=== PATIENT | male | born 1980 | race Caucasian/White ===

== ENCOUNTER 2017-05-17 22:48 | Emergency (ER) | payer BC, OTHER ==
[2017-05-17] MEDS ORDERED: cefTRIAXone 1,000 MG in Lidocaine 1% 4 ML IM ONE (23:14)
--- NOTE | 2017-05-17 23:16 | EDM.PDOC ---
ED HPI GENERAL MEDICAL PROBLEM - General Chief Complaint: ENT Problem Stated Complaint: PT HAS SORE THROAT Time Seen by Provider: 05/17/17 23:14 Source of Information: Reports: Patient - History of Present Illness INITIAL COMMENTS - FREE TEXT/NARRATIVE: HISTORY AND PHYSICAL: History of present illness: [ Patient presents with sore throat increasing in severity over the last 3-4 days difficulty with solid food no difficulty with liquid no fever nausea vomiting chills sweats Patient has history of significant tonsillitis he has had 3 episodes within the last 6 months, his doctor in [place] had recommended a tonsillectomy as his airway was nearly compromised previously however patient has a fear of surgery and declined at that time that he has been dealing with tonsillitis/ pharyngitis every 4-6 weeks, not all episodes are documented as he has taken some of his mother's antibiotics. No fever nausea vomiting chills sweats no hot potato voice to [place] or drooling ] Review of systems: As per history of present illness and below otherwise all systems reviewed and negative. Past medical history: As per history of present illness and as reviewed below otherwise noncontributory. Surgical history: As per history of present illness and as reviewed below otherwise noncontributory. Social history: No reported history of drug or alcohol abuse. Family history: As per history of present illness and as reviewed below otherwise noncontributory. Physical exam: HEENT: Atraumatic, normocephalic, pupils reactive, negative for conjunctival pallor or scleral icterus, mucous membranes moist, throat clear, neck supple, nontender, trachea midline. Moderate erythema tonsils 2+ enlarged submandibular lymph nodes Lungs: Clear to auscultation, breath sounds equal bilaterally, chest nontender. Heart: S1S2, regular, negative for clicks, rubs, or JVD. Abdomen: Soft, nondistended, nontender. Negative for masses or hepatosplenomegaly. Negative for costovertebral tenderness. Pelvis: Stable nontender. Genitourinary: Deferred. Rectal: Deferred. Extremities: Atraumatic, negative for cords or calf pain. Neurovascular unremarkable. Neuro: Awake, alert, oriented. Cranial nerves II through XII unremarkable. Cerebellum unremarkable. Motor and sensory unremarkable throughout. Exam nonfocal. Diagnostics: []Rapid strep Therapeutics: []1 g Rocephin Augmentin 875 twice a day #20 no refill Impression: []Pharyngitis/tonsillitis Definitive disposition and diagnosis as appropriate pending reevaluation and review of above. throat Pain Score (Numeric/FACES): 9 - Related Data Allergies Allergy/AdvReac Type Severity Reaction Status Date / Time No Known Allergies Allergy Verified 05/17/17 23:01 Home Meds: Home Meds Phentermine 1 cap PO DAILY 08/19/15 [History] Past Medical History - Past Health History Medical/Surgical History: Denies Medical/Surgical History HEENT History: Reports: None, Other (See Below) Other HEENT History: Astigmatism Cardiovascular History: Reports: None Respiratory History: Reports: Sleep Apnea Other Respiratory History: on CPAP Gastrointestinal History: Reports: None Genitourinary History: Reports: None Musculoskeletal History: Reports: None Other Musculoskeletal History: Back pain, right knee has a torn lateral miniscus -suppose to have surgery, right ankle pain with walking Neurological History: Reports: Migraines Psychiatric History: Reports: Anxiety, Bipolar, Depression, Panic Attack Endocrine/Metabolic History: Reports: None Hematologic History: Reports: None Immunologic History: Reports: None Oncologic (Cancer) History: Reports: None Dermatologic History: Reports: Eczema, Other (See Below) Other Dermatologic History: dry skin especially around the eyes - Infectious Disease History Infectious Disease History: Reports: None Other Infectious Disease History: childhood - Past Surgical History HEENT Surgical History: Reports: None Respiratory Surgical History: Reports: None Musculoskeletal Surgical History: Reports: None Dermatological Surgical History: Reports: None Social & Family History - Family History Family Medical History: Noncontributory Cardiac: Reports: Heart Failure, Hypertension Respiratory: Reports: Asthma, COPD, Other (See Below) Other Respiratory Family Hisory: Emphysema Psychiatric: Reports: Anxiety, Depression Endocrine/Metabolic: Reports: Diabetes, type II Oncologic: Reports: Cervix, Thyroid - Tobacco Use Smoking Status *Q: Never Smoker Second Hand Smoke Exposure: Yes - Caffeine Use Caffeine Use: Reports: Tea - Alcohol Use Days Per Week of Alcohol Use: 7 Number of Drinks Per Day: 1 Total Drinks Per Week: 7 - Recreational Drug Use Recreational Drug Use: No ED ROS GENERAL - Review of Systems Review Of Systems: ROS reveals no pertinent complaints other than HPI. ED EXAM, GENERAL - Physical Exam Exam: See Below Course - Vital Signs Last Recorded V/S: Last Vital Signs Temp 36.1 C 05/17/17 23:02 Pulse 93 05/17/17 23:02 Resp 18 05/17/17 23:02 BP 137/91 H 05/17/17 23:02 Pulse Ox 97 05/17/17 23:02 - Orders/Labs/Meds Orders: Active Orders 24 hr Category Date Time Status STREP SCRN A RAPID W CULT CONF [RM] Stat Lab 05/17/17 23:16 Uncollected Meds: Medications Discontinued Medications Generic Name Dose Route Start Last Admin Trade Name Mikki PRN Reason Stop Dose Admin Ceftriaxone Sodium 1,000 mg/ 4 mls @ 4 mls/sec 05/17/17 23:14 Lidocaine HCl IM 05/17/17 23:15 ONETIME ONE Departure - Departure Time of Disposition: 23:17 Disposition: Home, Self-Care 01 Condition: Good Clinical Impression: Pharyngitis, Tonsillitis - Discharge Information Referrals: PCP,None [Primary Care Provider] - Forms: ED Department Discharge Additional Instructions: Given your history I will have a follow-up with ENT, you can call the number below for appropriate follow-up Medications as prescribed Return if symptoms persist or worsen despite treatment [facility]NT [address] [place] [address] The following information is given to patients seen in the emergency department who are being discharged to home. This information is to outline your options for follow-up care. We provide all patients seen in our emergency department with a follow-up referral. The need for follow-up, as well as the timing and circumstances, are variable depending upon the specifics of your emergency department visit. If you don't have a primary care physician on staff, we will provide you with a referral. We always advise you to contact your personal physician following an emergency department visit to inform them of the circumstance of the visit and for follow-up with them and/or the need for any referrals to a consulting specialist. The emergency department will also refer you to a specialist when appropriate. This referral assures that you have the opportunity for follow-up care with a specialist. All of these measure are taken in an effort to provide you with optimal care, which includes your follow-up. Under all circumstances we always encourage you to contact your private physician who remains a resource for coordinating your care. When calling for follow-up care, please make the office aware that this follow-up is from your recent emergency room visit. If for any reason you are refused follow-up, please contact the [facility] emergency department at and asked to speak to the emergency department charge nurse. - My Orders Last 24 Hours: My Active Orders 05/17/17 23:16 STREP SCRN A RAPID W CULT CONF [RM] Stat - Assessment/Plan Last 24 Hours: My Active Orders 05/17/17 23:16 STREP SCRN A RAPID W CULT CONF [RM] Stat
[2017-05-17 23:55] VITALS: BP 176/92
== END 2017-05-17 23:52 | disposition home or self-care (01) ==
LOC: MW.ED 22:48
DX: J03.90 Acute tonsillitis, unspecified (principal); G47.30 Sleep apnea, unspecified; F31.9 Bipolar disorder, unspecified; F41.0 Panic disorder [episodic paroxysmal anxiety]; Z79.899 Other long term (current) drug therapy
CPT/HCPCS: 87081; 87880; 96372; 99283; J0696; 99282

== ENCOUNTER 2017-05-31 16:21 | Emergency (ER) | payer SELFPAY ==
[2017-05-31] MEDS ORDERED: Sodium Chloride 0.9% 1,000 ML IV ONE (16:58)
--- NOTE | 2017-05-31 17:02 | EDM.PDOC ---
ED HPI GENERAL MEDICAL PROBLEM - General Chief Complaint: General Stated Complaint: PT HURT JAW Time Seen by Provider: 05/31/17 16:36 Source of Information: Reports: Patient History Limitations: Reports: No Limitations - History of Present Illness INITIAL COMMENTS - FREE TEXT/NARRATIVE: HISTORY AND PHYSICAL: History of present illness: Patient is a 37-year-old male who presents to the emergency room today with complaints of left jaw pain that started this morning. He states he was seen about a week ago and told he had tonsillitis and instructed to follow-up with ear nose and throat. He did see an ENT and was placed on antibiotics, Augmentin. Has since completed his course of antibiotics. Woke up this morning and felt intense pain to the left jaw, stating "it feels like a coat body hanger that is starting mid mandible and goes up into the left ear". Has increased pain with opening and closing his jaw/mouth. Denies any difficulty swallowing or breathing. Denies any chest pain, shortness of breath, headache, blurred vision, fever or chills. Review of systems: As per history of present illness and below otherwise all systems reviewed and negative. Past medical history: As per history of present illness and as reviewed below otherwise noncontributory. Surgical history: As per history of present illness and as reviewed below otherwise noncontributory. Social history: No reported history of drug or alcohol abuse. Family history: As per history of present illness and as reviewed below otherwise noncontributory. Physical exam: Gen.: Well-developed and well-nourished 37-year-old male. Able to speak in full sentences without shortness of breath. Alert and oriented. HEENT: Atraumatic, normocephalic, pupils reactive, negative for conjunctival pallor or scleral icterus, mucous membranes moist, throat clear, neck supple, nontender, trachea midline. No hot potato voice. No trismus. Tenderness with palpation along the left lower mandible going up into the left ear. NO clicking or creptitus with open/closing of mouth. Lungs: Clear to auscultation, breath sounds equal bilaterally, chest nontender. Heart: S1S2, regular rate and rhythm Abdomen: Soft, nondistended, nontender. Negative for masses or hepatosplenomegaly. Negative for costovertebral tenderness. Pelvis: Stable nontender. Genitourinary: Deferred. Rectal: Deferred. Skin: Intact, warm, and dry. No overt rashes or lesions. Extremities: Atraumatic, moves all per self. Neurovascular unremarkable. Neuro: Awake, alert, oriented. Cranial nerves II through XII unremarkable. Cerebellum unremarkable. Motor and sensory unremarkable throughout. Exam nonfocal. Patient reports that he does feel improved after receiving his IV fluids and [address] of the soft tissue neck shows no sign of abnormal fluid collection or abscess. There is a slightly enlarged reactive lymph node that may need further follow-up in approximately 6-8 weeks per the consulting radiologist. The labs that were done today are within normal limits. I did share these with the patient and the family at bedside. I do not see a need for any additional antibiotics at this time as he does not have a fever or elevated white count. Will provide the patient with some medication and I would like him to follow-up with her primary caregiver over the next couple days. Patient and family members are agreeable to plan of care and deny any further questions at this time. Diagnostics: CBC, CMP, CT soft tissue neck Therapeutics: IV fluid, morphine Impression: Jaw pain Plan: 1. I would like you to take an anti-inflammatory as this will help with swelling. 800 mg of ibuprofen twice daily by mouth. In between that you may take the prescribed pain medication. Be aware that the [place] may cause drowsiness so do not drive or take while she is functioning at work. 2. I would like you to follow-up with her primary caregiver in the next couple days for reevaluation. Turned to the ED as needed and as discussed. Definitive disposition and diagnosis as appropriate pending reevaluation and review of above. Left Oral/Mouth Pain Score (Numeric/FACES): 7 - Related Data Allergies Allergy/AdvReac Type Severity Reaction Status Date / Time No Known Allergies Allergy Verified 05/31/17 16:37 Home Meds: Home Meds Multivitamin [Multi-Vitamin Daily] 1 tab PO DAILY 05/31/17 [History] Past Medical History - Past Health History Medical/Surgical History: Denies Medical/Surgical History HEENT History: Reports: None, Other (See Below) Other HEENT History: Astigmatism L eye Cardiovascular History: Reports: None Respiratory History: Reports: Sleep Apnea Other Respiratory History: on CPAP Gastrointestinal History: Reports: None Genitourinary History: Reports: None Musculoskeletal History: Reports: None Other Musculoskeletal History: Back pain, right knee has a torn lateral miniscus -suppose to have surgery, right ankle pain with walking Neurological History: Reports: Migraines Psychiatric History: Reports: Anxiety, Bipolar, Depression, Panic Attack Endocrine/Metabolic History: Reports: None Hematologic History: Reports: None Immunologic History: Reports: None Oncologic (Cancer) History: Reports: None Dermatologic History: Reports: Eczema, Other (See Below) Other Dermatologic History: dry skin especially around the eyes - Infectious Disease History Infectious Disease History: Reports: Chicken Pox Other Infectious Disease History: childhood - Past Surgical History HEENT Surgical History: Reports: None Respiratory Surgical History: Reports: None Musculoskeletal Surgical History: Reports: None Dermatological Surgical History: Reports: None Social & Family History - Family History Family Medical History: Noncontributory Cardiac: Reports: Heart Failure, Hypertension Respiratory: Reports: Asthma, COPD, Other (See Below) Other Respiratory Family Hisory: Emphysema Psychiatric: Reports: Anxiety, Depression Endocrine/Metabolic: Reports: Diabetes, type II Oncologic: Reports: Cervix, Thyroid - Tobacco Use Smoking Status *Q: Never Smoker Second Hand Smoke Exposure: Yes - Caffeine Use Caffeine Use: Reports: Soda - Alcohol Use Days Per Week of Alcohol Use: 7 Number of Drinks Per Day: 1 Total Drinks Per Week: 7 - Recreational Drug Use Recreational Drug Use: No ED ROS GENERAL - Review of Systems Review Of Systems: ROS reveals no pertinent complaints other than HPI. ED EXAM, GENERAL - Physical Exam Exam: See Below (See dictation) Course - Vital Signs Last Recorded V/S: Last Vital Signs Temp 37.1 C 05/31/17 16:33 Pulse 96 05/31/17 16:33 Resp 12 05/31/17 16:33 BP 172/99 H 05/31/17 16:33 Pulse Ox 96 05/31/17 16:33 - Orders/Labs/Meds Orders: Active Orders 24 hr Category Date Time Status Soft Tissue Neck w Cont [CT] Stat Exams 05/31/17 16:58 Taken Labs: Laboratory Tests 05/31/17 05/31/17 Range/Units 17:08 17:08 WBC 8.95 (4.0-11.0) K/uL RBC 4.97 (4.50-5.90) M/uL Hgb 13.6 (13.0-17.0) g/dL Hct 40.9 (38.0-50.0) % MCV 82.3 (80.0-98.0) fL MCH 27.4 (27.0-32.0) pg MCHC 33.3 (31.0-37.0) g/dL RDW Std Deviation 39.5 (28.0-62.0) fl RDW Coeff of Ruben 13 (11.0-15.0) % Plt Count 257 (150-400) K/uL MPV 10.40 (7.40-12.00) fL Neut % (Auto) 68.2 (48.0-80.0) % Lymph % (Auto) 23.0 (16.0-40.0) % [place] % (Auto) 6.0 (0.0-15.0) % Eos % (Auto) 2.6 (0.0-7.0) % Baso % (Auto) 0.2 (0.0-1.5) % Neut # (Auto) 6.1 H (1.4-5.7) K/uL Lymph # (Auto) 2.1 (0.6-2.4) K/uL [place] # (Auto) 0.5 (0.0-0.8) K/uL Eos # (Auto) 0.2 (0.0-0.7) K/uL Baso # (Auto) 0.0 (0.0-0.1) K/uL Nucleated RBC % 0.0 /100WBC Nucleated RBCs # 0 K/uL Sodium 138 (136-146) mmol/L Potassium 3.8 (3.5-5.1) mmol/L Chloride 106 (98-110) mmol/L Carbon Dioxide 24 (21-31) mmol/L BUN 18 (6.0-23.0) mg/dL Creatinine 0.8 (0.6-1.5) mg/dL Est Cr Clr Drug Dosing 123.50 mL/min Estimated GFR (MDRD) > 60.0 ml/min Glucose 98 (60-110) mg/dL Calcium 9.3 (8.8-10.8) mg/dL Total Bilirubin 0.3 (0.1-1.5) mg/dL AST 18 (5-40) IU/L ALT 23 (8-54) IU/L Alkaline Phosphatase 74 (40-150) Total Protein 7.6 (6.0-8.0) g/dL Albumin 3.7 (3.5-5.0) g/dL Globulin 3.9 H (2.0-3.5) g/dL Albumin/Globulin Ratio 1.0 L (1.3-2.8) Meds: Medications Discontinued Medications Generic Name Dose Route Start Last Admin Trade Name Mikki PRN Reason Stop Dose Admin Sodium Chloride 1,000 mls @ 999 mls/hr 05/31/17 16:58 05/31/17 17:32 Normal Saline IV 05/31/17 17:58 999 mls/hr STAT ONE Administration Iopamidol 75 ml 05/31/17 18:03 05/31/17 18:06 Isovue-370 (76%) IVPUSH 05/31/17 18:04 75 ml ONETIME STA Administration Morphine Sulfate 2 mg 05/31/17 17:07 05/31/17 17:34 Morphine IVPUSH 05/31/17 17:08 2 mg ONETIME ONE Administration Departure - Departure Time of Disposition: 19:02 Disposition: Home, Self-Care 01 Clinical Impression: Jaw pain, non-TMJ - Discharge Information Referrals: PCP,None [Primary Care Provider] - Forms: ED Department Discharge Additional Instructions: My general discharge The following information is given to patients seen in the emergency department who are being discharged to home. This information is to outline your options for follow-up care. We provide all patients seen in our emergency department with a follow-up referral. The need for follow-up, as well as the timing and circumstances, are variable depending upon the specifics of your emergency department visit. If you don't have a primary care physician on staff, we will provide you with a referral. We always advise you to contact your personal physician following an emergency department visit to inform them of the circumstance of the visit and for follow-up with them and/or the need for any referrals to a consulting specialist. The emergency department will also refer you to a specialist when appropriate. This referral assures that you have the opportunity for follow-up care with a specialist. All of these measure are taken in an effort to provide you with optimal care, which includes your follow-up. Under all circumstances we always encourage you to contact your private physician who remains a resource for coordinating your care. When calling for follow-up care, please make the office aware that this follow-up is from your recent emergency room visit. If for any reason you are refused follow-up, please contact the [facility] Emergency Department at and asked to speak to the emergency department charge nurse. 1. I would like you to take an anti-inflammatory as this will help with swelling. 800 mg of ibuprofen twice daily by mouth. In between that you may take the prescribed pain medication. Be aware that the [place] may cause drowsiness so do not drive or take while she is functioning at work. 2. Please allow your jaw to rest and do not do activities that will cause increased pain 3. I would like you to follow-up with her primary caregiver in the next couple days for reevaluation. Turned to the ED as needed and as discussed. - My Orders Last 24 Hours: My Active Orders 05/31/17 16:58 Soft Tissue Neck w Cont [CT] Stat - Assessment/Plan Last 24 Hours: My Active Orders 05/31/17 16:58 Soft Tissue Neck w Cont [CT] Stat
[2017-05-31] MEDS ORDERED: Morphine 2 MG/ML Syringe IVPUSH ONE (17:07)
[2017-05-31 17:34] LABS: CHLORIDE,CL 106 mmol/L (98-110); SODIUM,NA 138 mmol/L (136-146)
[2017-05-31] MEDS ORDERED: Iopamidol 755 Mg/ML 100 ML Bottle IVPUSH STA (18:03)
[2017-05-31 19:17] VITALS: BP 111/52
--- NOTE | 2017-06-01 10:30 | CT ---
EXAM DATE: 05/31/17 PATIENT'S AGE: 37 Patient: NOELLE ANDRES Facility: [place], [place] Site . Site : 1980 Study: CT ST Neck [id number]/[id number] 6:11:40 PM Ordering Physician: Doctor Guzmán Final Report: HISTORY: Left-sided pain. Diagnosed with tonsillitis last week. Evaluate for peritonsillar abscess or TMJ abscess. TECHNIQUE: Soft tissue neck was scanned in the axial plane at 3 mm intervals after 80 cc Isovue-370. Sagittal and coronal reconstructions were performed. FINDINGS: Globes and orbital contents are symmetric. The frontal, ethmoid, sphenoid and right maxillary sinuses are well aerated. The left maxillary sinus has a 1.6 cm retention cyst or polyp. Mastoid air cells and middle ears are well-aerated. There is normal alignment and appearance of the TMJs. There is loss of lordosis within the cervical spine. There is degenerative changes of the disc at C5-6. The palatine tonsils are generous in size without abnormal fluid collection or abscess. The parapharyngeal fat planes are preserved. The parotid glands are symmetric in size and density. Submandibular glands are symmetric in size and density. There are small posterior cervical lymph nodes. Small submandibular lymph nodes are present. There are 1.0 x 1.0 cm and 1.2 x 1.2 cm left jugular lymph nodes. The vallecula and piriform sinuses are symmetric. The vocal cords are normal. The thyroid is homogeneous. No pathologic mediastinal lymphadenopathy seen. Upper lobes of the lung are well aerated. IMPRESSION: 1. [place] tonsils are generous in size without abnormal fluid collection or abscess. 2. There are generous left jugular lymph nodes most likely reactive. Consider exam 6-8 weeks to document resolution. 3. 1.6 cm mucous retention cyst or polyp left maxillary sinus. 4. No abscess identified. Dictated by Agata Braswell MD @ 05/31/2017 6:31:41 PM Dictated by: Agata Braswell MD @ 05/31/2017 18:31:47 (Electronic Signature) Report Signed by Proxy. NIHARIKA
== END 2017-05-31 19:15 | disposition home or self-care (01) ==
LOC: MW.ED 16:21
DX: R68.84 Jaw pain (principal); G47.30 Sleep apnea, unspecified
CPT/HCPCS: 36415; 70491; 80053; 85025; 96361; 96374; 99284; J2270; J7040; Q9967; 99283

== ENCOUNTER 2017-09-27 07:12 | Emergency (ER) | payer BC, OTHER ==
[2017-09-27] MEDS ORDERED: Morphine 4 MG/ML Syringe IVPUSH ONE (07:42)
[2017-09-27] MEDS ORDERED: Ondansetron 4 MG/2 ML SDV IVPUSH ONE (07:42)
[2017-09-27] MEDS ORDERED: Sodium Chloride 0.9% 1,000 ML IV ONE (07:42)
[2017-09-27] MEDS ORDERED: Sodium Chloride 0.9% 10 ML Syringe FLUSH PRN (07:42)
[2017-09-27] MEDS ORDERED: Sodium Chloride 0.9% 2.5 ML Syringe FLUSH PRN (07:42)
--- NOTE | 2017-09-27 07:42 | EDM.PDOC ---
ED HPI GENERAL MEDICAL PROBLEM - General Chief Complaint: Abdominal Pain Stated Complaint: STOMACH PAINS Time Seen by Provider: 09/27/17 07:40 Source of Information: Reports: Patient History Limitations: Reports: No Limitations - History of Present Illness INITIAL COMMENTS - FREE TEXT/NARRATIVE: History of present illness: []Patient's had 3 days of bilateral lower abdominal cramping and vomiting approximately 3-4 times a day. He denies Any fevers, diarrhea or constipation. Patient states he is passing flatus in the past couple days without difficulty does not feel like his abdomen is swollen and distended. Review of systems: As per history of present illness and below otherwise all systems reviewed and negative. Past medical history: As per history of present illness and as reviewed below otherwise noncontributory. Surgical history: As per history of present illness and as reviewed below otherwise noncontributory. Social history: No reported history of drug or alcohol abuse. Family history: As per history of present illness and as reviewed below otherwise noncontributory. Physical exam: General: Well developed, well nourished in NAD HEENT: Atraumatic, normocephalic, pupils reactive, negative for conjunctival pallor or scleral icterus, mucous membranes moist, throat clear, neck supple, nontender, trachea midline. Lungs: Clear to auscultation, breath sounds equal bilaterally, chest nontender. Heart: S1S2, regular, negative for clicks, rubs, or JVD. Abdomen: Hyperactive bowel sounds, Soft, nondistended, tender lower abdomen no rebound or guarding. Negative for masses or hepatosplenomegaly. Negative for costovertebral tenderness. Pelvis: Stable nontender. Genitourinary: Deferred. Rectal: Deferred. Extremities: Atraumatic, negative for cords or calf pain. Neurovascular unremarkable. Neuro: Awake, alert, oriented. Cranial nerves II through XII unremarkable. Cerebellum unremarkable. Motor and sensory unremarkable throughout. Exam nonfocal. Diagnostics: []Labs normal Therapeutics: []IV hydration and Zofran Impression: []Vomiting Plan: []Zofran for nausea and vomiting, increase fluids, follow-up with primary care Definitive disposition and diagnosis as appropriate pending reevaluation and review of above. Abdominal Pain Score (Numeric/FACES): 5 - Related Data Allergies Allergy/AdvReac Type Severity Reaction Status Date / Time No Known Allergies Allergy Verified 09/27/17 07:25 Home Meds: Home Meds Multivitamin [Multi-Vitamin Daily] 1 tab PO DAILY 05/31/17 [History] Ondansetron [Zofran ODT] 4 mg PO Q6H PRN #12 tab.dis 09/27/17 [Rx] Past Medical History - Past Health History Medical/Surgical History: Denies Medical/Surgical History HEENT History: Reports: None, Other (See Below) Other HEENT History: Astigmatism L eye Cardiovascular History: Reports: None Respiratory History: Reports: Sleep Apnea Other Respiratory History: on CPAP Gastrointestinal History: Reports: None Genitourinary History: Reports: None Musculoskeletal History: Reports: None Other Musculoskeletal History: Back pain, right knee has a torn lateral miniscus -suppose to have surgery, right ankle pain with walking Neurological History: Reports: Migraines Psychiatric History: Reports: Anxiety, Bipolar, Depression, Panic Attack Endocrine/Metabolic History: Reports: None Hematologic History: Reports: None Immunologic History: Reports: None Oncologic (Cancer) History: Reports: None Dermatologic History: Reports: Eczema, Other (See Below) Other Dermatologic History: dry skin especially around the eyes - Infectious Disease History Infectious Disease History: Reports: Chicken Pox Other Infectious Disease History: childhood - Past Surgical History HEENT Surgical History: Reports: None Respiratory Surgical History: Reports: None Musculoskeletal Surgical History: Reports: None Dermatological Surgical History: Reports: None Social & Family History - Family History Family Medical History: Noncontributory Cardiac: Reports: Heart Failure, Hypertension Respiratory: Reports: Asthma, COPD, Other (See Below) Other Respiratory Family Hisory: Emphysema Psychiatric: Reports: Anxiety, Depression Endocrine/Metabolic: Reports: Diabetes, type II Oncologic: Reports: Cervix, Thyroid - Tobacco Use Smoking Status *Q: Never Smoker Second Hand Smoke Exposure: Yes - Caffeine Use Caffeine Use: Reports: Soda - Alcohol Use Days Per Week of Alcohol Use: 7 Number of Drinks Per Day: 1 Total Drinks Per Week: 7 - Recreational Drug Use Recreational Drug Use: No ED ROS GENERAL - Review of Systems Review Of Systems: See Below (See history of present illness) ED EXAM, GI/ABD - Physical Exam Exam: See Below (See history of present illness) Course - Vital Signs Last Recorded V/S: Last Vital Signs Temp 98.5 F 09/27/17 07:22 Pulse 92 09/27/17 07:22 Resp 18 09/27/17 07:22 BP 148/88 H 09/27/17 07:22 Pulse Ox 94 L 09/27/17 07:22 - Orders/Labs/Meds Orders: Active Orders 24 hr Category Date Time Status Sodium Chloride 0.9% [Saline Flush] Med 09/27/17 07:42 Active 10 ml FLUSH ASDIRECTED PRN Sodium Chloride 0.9% [Saline Flush] Med 09/27/17 07:42 Active 2.5 ml FLUSH ASDIRECTED PRN Saline Lock Insert [OM.PC] Stat Oth 09/27/17 07:42 Ordered Medication Orders Sodium Chloride (Saline Flush) 10 ml FLUSH ASDIRECTED PRN PRN Reason: Keep Vein Open Sodium Chloride (Saline Flush) 2.5 ml FLUSH ASDIRECTED PRN PRN Reason: Keep Vein Open Labs: Laboratory Tests 09/27/17 09/27/17 09/27/17 Range/Units 07:43 07:56 07:56 WBC 7.97 (4.0-11.0) K/uL RBC 5.07 (4.50-5.90) M/uL Hgb 13.8 (13.0-17.0) g/dL Hct 41.2 (38.0-50.0) % MCV 81.3 (80.0-98.0) fL MCH 27.2 (27.0-32.0) pg MCHC 33.5 (31.0-37.0) g/dL RDW Std Deviation 40.4 (28.0-62.0) fl RDW Coeff of Ruben 14 (11.0-15.0) % Plt Count 251 (150-400) K/uL MPV 10.60 (7.40-12.00) fL Neut % (Auto) 70.0 (48.0-80.0) % Lymph % (Auto) 22.0 (16.0-40.0) % [place] % (Auto) 6.1 (0.0-15.0) % Eos % (Auto) 1.6 (0.0-7.0) % Baso % (Auto) 0.3 (0.0-1.5) % Neut # (Auto) 5.6 (1.4-5.7) K/uL Lymph # (Auto) 1.8 (0.6-2.4) K/uL [place] # (Auto) 0.5 (0.0-0.8) K/uL Eos # (Auto) 0.1 (0.0-0.7) K/uL Baso # (Auto) 0.0 (0.0-0.1) K/uL Nucleated RBC % 0.0 /100WBC Nucleated RBCs # 0 K/uL Sodium 139 (136-146) mmol/L Potassium 3.6 (3.5-5.1) mmol/L Chloride 107 (98-110) mmol/L Carbon Dioxide 25 (21-31) mmol/L BUN 16 (6.0-23.0) mg/dL Creatinine 0.8 (0.6-1.5) mg/dL Est Cr Clr Drug Dosing 111.04 mL/min Estimated GFR (MDRD) > 60.0 ml/min Glucose 112 H (60-110) mg/dL Calcium 9.2 (8.8-10.8) mg/dL Total Bilirubin 0.3 (0.1-1.5) mg/dL AST 18 (5-40) IU/L ALT 27 (8-54) IU/L Alkaline Phosphatase 66 (40-150) Total Protein 7.5 (6.0-8.0) g/dL Albumin 3.8 (3.5-5.0) g/dL Globulin 3.7 H (2.0-3.5) g/dL Albumin/Globulin Ratio 1.0 L (1.3-2.8) Lipase 22 (7-80) U/L Urine Color YELLOW Urine Appearance CLEAR Urine pH 5.5 (5.0-8.0) Ur Specific [place] >= 1.030 (1.001-1.035) Urine Protein NEGATIVE (NEGATIVE) mg/dL Urine Glucose (UA) NEGATIVE (NEGATIVE) mg/dL Urine Ketones NEGATIVE (NEGATIVE) mg/dL Urine Occult Blood NEGATIVE (NEGATIVE) Urine Nitrite NEGATIVE (NEGATIVE) Urine Bilirubin NEGATIVE (NEGATIVE) Urine Urobilinogen 0.2 (<2.0) EU/dL Ur Leukocyte Esterase NEGATIVE (NEGATIVE) Urine RBC 0-1 (0-2/HPF) Urine WBC 0-1 (0-5/HPF) Ur Epithelial Cells RARE (NONE-FEW) Urine Bacteria RARE (NEGATIVE) Urine Mucus LIGHT (NONE-MOD) Meds: Medications Generic Name Dose Route Start Last Admin Trade Name Freq PRN Reason Stop Dose Admin Sodium Chloride 10 ml 09/27/17 07:42 Saline Flush FLUSH ASDIRECTED PRN Keep Vein Open Sodium Chloride 2.5 ml 09/27/17 07:42 Saline Flush FLUSH ASDIRECTED PRN Keep Vein Open Discontinued Medications Generic Name Dose Route Start Last Admin Trade Name Freq PRN Reason Stop Dose Admin Sodium Chloride 1,000 mls @ 999 mls/hr 09/27/17 07:42 09/27/17 07:56 Normal Saline IV 09/27/17 08:42 999 mls/hr .Bolus ONE Administration Morphine Sulfate 4 mg 09/27/17 07:42 09/27/17 07:57 Morphine IVPUSH 09/27/17 07:43 4 mg ONETIME ONE Administration Ondansetron HCl 4 mg 09/27/17 07:42 09/27/17 07:57 Zofran IVPUSH 09/27/17 07:43 4 mg ONETIME ONE Administration Departure - Departure Time of Disposition: 08:55 Disposition: Home, Self-Care 01 Condition: Good Clinical Impression: Vomiting Qualifiers: Vomiting type: unspecified Vomiting Intractability: non-intractable Nausea presence: with nausea Qualified Code(s): R11.2 - Nausea with vomiting, unspecified - Discharge Information Prescriptions: Ondansetron [Zofran ODT] 4 mg PO Q6H PRN #12 tab.dis PRN Reason: Nausea Instructions: Nausea and Vomiting, Adult, [id number] Referrals: PCP,None [Primary Care Provider] - Forms: ED Department Discharge Additional Instructions: The following information is given to patients seen in the emergency department who are being discharged to home. This information is to outline your options for follow-up care. We provide all patients seen in our emergency department with a follow-up referral. The need for follow-up, as well as the timing and circumstances, are variable depending upon the specifics of your emergency department visit. If you don't have a primary care physician on staff, we will provide you with a referral. We always advise you to contact your personal physician following an emergency department visit to inform them of the circumstance of the visit and for follow-up with them and/or the need for any referrals to a consulting specialist. The emergency department will also refer you to a specialist when appropriate. This referral assures that you have the opportunity for follow-up care with a specialist. All of these measure are taken in an effort to provide you with optimal care, which includes your follow-up. Under all circumstances we always encourage you to contact your private physician who remains a resource for coordinating your care. When calling for follow-up care, please make the office aware that this follow-up is from your recent emergency room visit. If for any reason you are refused follow-up, please contact the [facility] Emergency Department at and asked to speak to the emergency department charge nurse. Travis for vomiting - My Orders Last 24 Hours: My Active Orders 09/27/17 07:42 Sodium Chloride 0.9% [Saline Flush] 10 ml FLUSH ASDIRECTED PRN Sodium Chloride 0.9% [Saline Flush] 2.5 ml FLUSH ASDIRECTED PRN Saline Lock Insert [OM.PC] Stat - Assessment/Plan Last 24 Hours: My Active Orders 09/27/17 07:42 Sodium Chloride 0.9% [Saline Flush] 10 ml FLUSH ASDIRECTED PRN Sodium Chloride 0.9% [Saline Flush] 2.5 ml FLUSH ASDIRECTED PRN Saline Lock Insert [OM.PC] Stat
[2017-09-27 08:34] LABS: CHLORIDE,CL 107 mmol/L (98-110); SODIUM,NA 139 mmol/L (136-146)
[2017-09-27 09:18] VITALS: BP 127/54
== END 2017-09-27 09:13 | disposition home or self-care (01) ==
LOC: MW.ED 07:12
DX: R11.2 Nausea with vomiting, unspecified (principal); R10.31 Right lower quadrant pain; R10.32 Left lower quadrant pain; G47.30 Sleep apnea, unspecified; Z77.22 Contact with and (suspected) exposure to environmental tobacco smoke (acute) (chronic)
CPT/HCPCS: 36415; 80053; 81001; 83690; 85025; 96361; 96374; 96375; 99284; J2270; J2405; J7040; 99283

== ENCOUNTER 2017-11-01 19:49 | Observation (INO) | payer OTHER ==
[2017-11-01] MEDS ORDERED: Ondansetron 4 MG/2 ML SDV IVPUSH ONE (20:24)
[2017-11-01] MEDS ORDERED: Sodium Chloride 0.9% 1,000 ML IV ONE (20:24)
[2017-11-01] MEDS ORDERED: Pantoprazole 40 MG Vial IVPUSH ONE (20:24)
--- NOTE | 2017-11-01 20:28 | EDM.PDOC ---
ED HPI GENERAL MEDICAL PROBLEM - General Chief Complaint: Gastrointestinal Problem Stated Complaint: NAUSEA/VOMITING Time Seen by Provider: 11/01/17 20:19 - History of Present Illness INITIAL COMMENTS - FREE TEXT/NARRATIVE: HISTORY AND PHYSICAL: History of present illness: Patient 37-year-old male presents a concern of vomiting diarrhea with generalized weakness and possible dehydration he's had similar episode approximately 1 month prior he also states he's had some dark stools he denies hematemesis denies history of known GI bleed denies chest pain short of breath or bleeding diathesis Review of systems: As per history of present illness and below otherwise all systems reviewed and negative. Past medical history: As per history of present illness and as reviewed below otherwise noncontributory. Surgical history: As per history of present illness and as reviewed below otherwise noncontributory. Social history: No reported history of drug or alcohol abuse. Family history: As per history of present illness and as reviewed below otherwise noncontributory. Physical exam: HEENT: Atraumatic, normocephalic, pupils reactive, negative for conjunctival pallor or scleral icterus, mucous membranes dry, throat clear, neck supple, nontender, trachea midline. Lungs: Clear to auscultation, breath sounds equal bilaterally, chest nontender. Heart: S1S2, regular, negative for clicks, rubs, or JVD. Abdomen: Soft, nondistended, nontender. Negative for masses or hepatosplenomegaly. Negative for costovertebral tenderness. Pelvis: Stable nontender. Genitourinary: Deferred. Rectal: Deferred. Extremities: Atraumatic, negative for cords or calf pain. Neurovascular unremarkable. Neuro: Awake, alert, oriented. Cranial nerves II through XII unremarkable. Cerebellum unremarkable. Motor and sensory unremarkable throughout. Exam nonfocal. Diagnostics: CBC CMP and lipase stool for occult blood Therapeutics: Saline 1 L bolus Zofran 4 mg IV Protonix 80 mg IV Impression: #1 vomiting/diarrhea with dehydration Definitive disposition and diagnosis as appropriate pending reevaluation and review of above. Abdomen Pain Score (Numeric/FACES): 0 Head Pain Score (Numeric/FACES): 5 - Related Data Allergies Allergy/AdvReac Type Severity Reaction Status Date / Time No Known Allergies Allergy Verified 11/01/17 20:29 Home Meds: Home Meds . [No Known Home Meds] 11/01/17 [History] Past Medical History - Past Health History Medical/Surgical History: Denies Medical/Surgical History HEENT History: Reports: None, Other (See Below) Other HEENT History: Astigmatism L eye Cardiovascular History: Reports: None Respiratory History: Reports: Sleep Apnea Other Respiratory History: on CPAP Gastrointestinal History: Reports: None Genitourinary History: Reports: None Musculoskeletal History: Reports: None Other Musculoskeletal History: Back pain, right knee has a torn lateral miniscus -suppose to have surgery, right ankle pain with walking Neurological History: Reports: Migraines Psychiatric History: Reports: Anxiety, Bipolar, Depression, Panic Attack Endocrine/Metabolic History: Reports: None Hematologic History: Reports: None Immunologic History: Reports: None Oncologic (Cancer) History: Reports: None Dermatologic History: Reports: Eczema, Other (See Below) Other Dermatologic History: dry skin especially around the eyes - Infectious Disease History Infectious Disease History: Reports: Chicken Pox Other Infectious Disease History: childhood - Past Surgical History HEENT Surgical History: Reports: None Respiratory Surgical History: Reports: None Musculoskeletal Surgical History: Reports: None Dermatological Surgical History: Reports: None Social & Family History - Family History Family Medical History: Noncontributory Cardiac: Reports: Heart Failure, Hypertension Respiratory: Reports: Asthma, COPD, Other (See Below) Other Respiratory Family Hisory: Emphysema Psychiatric: Reports: Anxiety, Depression Endocrine/Metabolic: Reports: Diabetes, type II Oncologic: Reports: Cervix, Thyroid - Tobacco Use Smoking Status *Q: Never Smoker Second Hand Smoke Exposure: Yes - Caffeine Use Caffeine Use: Reports: Soda - Alcohol Use Days Per Week of Alcohol Use: 7 Number of Drinks Per Day: 1 Total Drinks Per Week: 7 - Recreational Drug Use Recreational Drug Use: No ED ROS GENERAL - Review of Systems Review Of Systems: ROS reveals no pertinent complaints other than HPI. ED EXAM, GENERAL - Physical Exam Exam: See Below (See dictation) Course - Vital Signs Last Recorded V/S: Last Vital Signs Temp 37.9 C 11/01/17 22:30 Pulse 103 H 11/01/17 22:30 Resp 18 11/01/17 22:30 BP 129/66 11/01/17 22:30 Pulse Ox 96 11/02/17 00:00 - Orders/Labs/Meds Orders: Medication Orders Lactated Ringer's (Ringers, Lactated) 1,000 mls @ 125 mls/hr IV ASDIRECTED [place] Last Admin: 11/01/17 23:39 Dose: 125 mls/hr Morphine Sulfate (Morphine) 2 mg IVPUSH Q2H PRN PRN Reason: Pain (severe 7-10) Stop: 11/02/17 22:32 Ondansetron HCl (Zofran) 4 mg IVPUSH Q4H PRN PRN Reason: Nausea Pantoprazole Sodium (Protonix Iv) 80 mg IVPUSH Q12HR [place] Promethazine HCl (Phenergan) 25 mg IM Q6H PRN PRN Reason: Nausea Labs: Laboratory Tests 11/01/17 11/01/17 11/01/17 Range/Units 20:40 20:40 20:40 WBC 10.52 (4.0-11.0) K/uL RBC 5.18 (4.50-5.90) M/uL Hgb 14.2 (13.0-17.0) g/dL Hct 41.7 (38.0-50.0) % MCV 80.5 (80.0-98.0) fL MCH 27.4 (27.0-32.0) pg MCHC 34.1 (31.0-37.0) g/dL RDW Std Deviation 39.4 (28.0-62.0) fl RDW Coeff of Ruben 13 (11.0-15.0) % Plt Count 231 (150-400) K/uL MPV 10.40 (7.40-12.00) fL Neut % (Auto) 85.2 H (48.0-80.0) % Lymph % (Auto) 10.3 L (16.0-40.0) % [place] % (Auto) 4.3 (0.0-15.0) % Eos % (Auto) 0.1 (0.0-7.0) % Baso % (Auto) 0.1 (0.0-1.5) % Neut # (Auto) 9.0 H (1.4-5.7) K/uL Lymph # (Auto) 1.1 (0.6-2.4) K/uL [place] # (Auto) 0.5 (0.0-0.8) K/uL Eos # (Auto) 0.0 (0.0-0.7) K/uL Baso # (Auto) 0.0 (0.0-0.1) K/uL Nucleated RBC % 0.0 /100WBC Nucleated RBCs # 0 K/uL Sodium 137 (136-148) mmol/L Potassium 3.8 (3.5-5.1) mmol/L Chloride 104 (98-107) mmol/L Carbon Dioxide 26.3 (21.0-32.0) mmol/L BUN 16 (7.0-18.0) mg/dL Creatinine 0.8 (0.8-1.3) mg/dL Est Cr Clr Drug Dosing 123.50 mL/min Estimated GFR (MDRD) > 60.0 ml/min Glucose 85 (74-106) mg/dL Calcium 8.2 L (8.5-10.1) mg/dL Total Bilirubin 0.4 (0.2-1.0) mg/dL AST 18 (15-37) IU/L ALT 31 (14-63) IU/L Alkaline Phosphatase 70 (46-116) U/L Total Protein 7.0 (6.4-8.2) g/dL Albumin 3.2 L (3.4-5.0) g/dL Globulin 3.8 H (2.0-3.5) g/dL Albumin/Globulin Ratio 0.8 L (1.3-2.8) Lipase 103 (73-393) U/L H. pylori IgG Antibody NEGATIVE (NEG) Meds: Medications Generic Name Dose Route Start Last Admin Trade Name Freq PRN Reason Stop Dose Admin Lactated Ringer's 1,000 mls @ 125 mls/hr 11/01/17 22:30 11/01/17 23:39 Ringers, Lactated IV 125 mls/hr ASDIRECTED [place] Administration Morphine Sulfate 2 mg 11/01/17 22:29 Morphine IVPUSH 11/02/17 22:32 Q2H PRN Pain (severe 7-10) Ondansetron HCl 4 mg 11/01/17 22:29 Zofran IVPUSH Q4H PRN Nausea Pantoprazole Sodium 80 mg 11/02/17 09:00 Protonix Iv IVPUSH Q12HR [facility] Promethazine HCl 25 mg 11/01/17 22:29 Phenergan IM Q6H PRN Nausea Discontinued Medications Generic Name Dose Route Start Last Admin Trade Name Mikki PRN Reason Stop Dose Admin Diphenhydramine HCl 25 mg 11/01/17 23:21 11/01/17 23:45 Benadryl IVPUSH 11/01/17 23:22 25 mg ONETIME ONE Administration Sodium Chloride 1,000 mls @ 999 mls/hr 11/01/17 20:24 11/01/17 20:54 Normal Saline IV 11/01/17 21:24 999 mls/hr STAT ONE Administration Iopamidol 100 ml 11/01/17 22:44 11/01/17 22:48 [id number] (76%) IVPUSH 11/01/17 22:45 100 ml ONETIME STA Administration Ondansetron HCl 4 mg 11/01/17 20:24 11/01/17 20:54 Zofran IVPUSH 11/01/17 20:25 4 mg ONETIME ONE Administration Pantoprazole Sodium 80 mg 11/01/17 20:24 11/01/17 20:54 Protonix Iv IVPUSH 11/01/17 20:25 80 mg .BOLUS ONE Administration Prochlorperazine Edisylate 10 mg 11/01/17 23:23 11/01/17 23:45 Compazine IVPUSH 11/01/17 23:24 10 mg ONETIME ONE Administration Departure - Departure Time of Disposition: 23:30 Disposition: Admitted As Inpatient 66 Condition: Good Clinical Impression: Vomiting, Diarrhea, Dehydration, Gastrointestinal bleeding - Discharge Information
[2017-11-01 21:12] LABS: CHLORIDE,CL 104 mmol/L (98-107); SODIUM,NA 137 mmol/L (136-148)
[2017-11-01] MEDS ORDERED: Morphine 10 MG/ML Syringe IVPUSH PRN (22:29)
[2017-11-01] MEDS ORDERED: Ondansetron 4 MG/2 ML SDV IVPUSH PRN (22:29)
[2017-11-01] MEDS ORDERED: Promethazine 25 MG/ML SDV IM PRN (22:29)
[2017-11-01] MEDS ORDERED: Iopamidol 755 Mg/ML 100 ML Bottle IVPUSH STA (22:44)
--- NOTE | 2017-11-01 22:51 | PCM.HP ---
H&P History of Present Illness - General Date of Service: 11/02/17 Admit Problem/Dx: Admission Diagnosis/Problem Admission Diagnosis/Problem Acute gastrointestinal hemorrhage Source of Information: Patient, Family History Limitations: Reports: No Limitations - History of Present Illness Initial Comments - Free Text/Narative: 37-year-old male presenting to emergency department with chief complaint of nausea, vomiting, diarrhea 2 days with no significant past medical history. Patient states that for the last couple of days he has had nausea, vomiting, and diarrhea. He is not able to keep anything down. He's had associated abdominal cramping and does mention dark tarry odorus stools. He does report a similar episode that happened approximately 1 month ago. He is also complaining of some fever, chills, and diaphoresis. He denies any history of GERD, bloody stools, or GI bleeds. Patient has no significant past medical history but does take phentermine occasionally for weight loss. He has not taken the medication for some time. Patient states that he does not see a regular primary care physician here and has no allergies. Currently denies any chest pain, palpitations, shortness breath, syncopal episodes, or focal neurologic deficits. Emergency department: CBC shows normal hemoglobin level and is unremarkable, CMP unremarkable, vital signs tachycardia of 114 with hypertension of 142/76. He was given Protonix 80 mg IV as well as 1 L normal saline. Patient admitted for acute GI bleed/intractable nausea and vomiting/dehydration. Head Pain Score (Numeric/FACES): 5 - Related Data Allergies/Adverse Reactions: Allergies Allergy/AdvReac Type Severity Reaction Status Date / Time No Known Allergies Allergy Verified 11/01/17 20:29 Home Medications: Home Meds . [No Known Home Meds] 11/01/17 [History] Past Medical History - Past Health History Medical/Surgical History: Denies Medical/Surgical History HEENT History: Reports: None, Other (See Below) Other HEENT History: Astigmatism L eye Cardiovascular History: Reports: None Respiratory History: Reports: Sleep Apnea Other Respiratory History: on CPAP Gastrointestinal History: Reports: None Genitourinary History: Reports: None Musculoskeletal History: Reports: None Other Musculoskeletal History: Back pain, right knee has a torn lateral miniscus -suppose to have surgery, right ankle pain with walking Neurological History: Reports: Migraines Psychiatric History: Reports: Anxiety, Bipolar, Depression, Panic Attack Endocrine/Metabolic History: Reports: None Hematologic History: Reports: None Immunologic History: Reports: None Oncologic (Cancer) History: Reports: None Dermatologic History: Reports: Eczema, Other (See Below) Other Dermatologic History: dry skin especially around the eyes - Infectious Disease History Infectious Disease History: Reports: Chicken Pox Other Infectious Disease History: childhood - Past Surgical History HEENT Surgical History: Reports: None Respiratory Surgical History: Reports: None Musculoskeletal Surgical History: Reports: None Dermatological Surgical History: Reports: None Social & Family History - Family History Family Medical History: Noncontributory Cardiac: Reports: Heart Failure, Hypertension Respiratory: Reports: Asthma, COPD, Other (See Below) Other Respiratory Family Hisory: Emphysema Psychiatric: Reports: Anxiety, Depression Endocrine/Metabolic: Reports: Diabetes, type II Oncologic: Reports: Cervix, Thyroid - Tobacco Use Smoking Status *Q: Never Smoker Second Hand Smoke Exposure: Yes - Caffeine Use Caffeine Use: Reports: Soda - Alcohol Use Days Per Week of Alcohol Use: 7 Number of Drinks Per Day: 1 Total Drinks Per Week: 7 - Recreational Drug Use Recreational Drug Use: No H&P Review of Systems - Review of Systems: Review Of Systems: See Below General: Reports: Fever, Chills, Weakness, Fatigue, Diaphoresis HEENT: Reports: Headaches. Denies: Sore Throat Pulmonary: Denies: Shortness of Breath, Wheezing, Pleuritic Chest Pain, Cough, Sputum Cardiovascular: Denies: Chest Pain, Palpitations, Edema Gastrointestinal: Reports: Abdominal Pain, Black Stool, Diarrhea, Nausea, Vomiting. Denies: Bloody Stool Genitourinary: Denies: Dysuria, Hematuria Musculoskeletal: Denies: Neck Pain, Leg Pain Skin: Denies: Cyanosis Psychiatric: Denies: Confusion Neurological: Reports: Headache. Denies: Confusion, Dizziness Hematologic/Lymphatic: Denies: Anemia Immunologic: Denies: Anaphylaxis Exam - Exam Exam: See Below - Vital Signs Vital Signs: Last Vital Signs Temp 99.5 F 11/01/17 19:49 Pulse 109 H 11/01/17 21:42 Resp 18 11/01/17 21:42 BP 124/75 11/01/17 21:42 Pulse Ox 96 11/01/17 21:42 Weight: 148 kg - Exam Quality Assessment: DVT Prophylaxis General: Alert, Oriented, Cooperative HEENT: Conjunctiva Clear, EACs Clear, EOMI, Hearing Intact, Mucosa Moist & Emet , Nares Patent, Normal Nasal Septum, Posterior Pharynx Clear, PERRLA Neck: Supple, Trachea Midline, 2 Lungs: Clear to Auscultation, Normal Respiratory Effort Cardiovascular: Regular Rhythm, Tachycardia GI/Abdominal Exam: Normal Bowel Sounds, Soft, No Organomegaly, No Distention, Tender (Male) Exam: Deferred Rectal (Males) Exam: Deferred Back Exam: Normal Inspection Extremities: Normal Inspection, Non-Tender, No Pedal Edema, Normal Capillary Refill Peripheral Pulses: 2+: Radial (L), Radial (R), Posterior Tibial (L), Posterior Tibial (R), Dorsalis Pedis (L), Dorsalis Pedis (R) Skin: Warm, Dry, Intact Neurological: Cranial Nerves Intact Neuro Extensive - Mental Status: Alert, Oriented x3, Normal Mood/Affect, Normal Cognition Neuro Extensive - Motor, Sensory, Reflexes: CN II-XII Intact Psychiatric: Alert, Normal Affect, Normal Mood - Patient Data Result Diagrams: 11/01/17 20:40 11/01/17 20:40 *Q Meaningful Use (ADM) - VTE *Q VTE Criteria *Q: - Stroke *Q Stroke Criteria *Q: - AMI *Q AMI Criteria *Q: - Problem List (1) Black tarry stools SNOMED Code(s): 809292819 ICD Code: K92.1 - MELENA Status: Acute Current Visit: Yes (2) Nausea & vomiting SNOMED Code(s): 60711489 ICD Code: R11.2 - NAUSEA WITH VOMITING, UNSPECIFIED Status: Acute Priority: High Current Visit: Yes Qualifiers: Vomiting type: unspecified (3) Diarrhea SNOMED Code(s): 27498287 ICD Code: R19.7 - DIARRHEA, UNSPECIFIED Status: Acute Priority: High Current Visit: Yes Qualifiers: Diarrhea type: unspecified type Qualified Code(s): R19.7 - Diarrhea, unspecified Problem List Initiated/Reviewed/Updated: Yes Orders Last 24hrs: Active Orders 24 hr Category Date Time Status Patient Status [ADT] Routine ADT 11/01/17 22:29 Active Antiembolic Devices [RC] PER UNIT ROUTINE Care 11/01/17 22:31 Active Oxygen Therapy [RC] PRN Care 11/01/17 22:29 Active Up With Assistance [RC] ASDIRECTED Care 11/01/17 22:29 Active VTE/DVT Education [RC] PER UNIT ROUTINE Care 11/01/17 22:29 Active Vital Signs [RC] Q4H Care 11/01/17 22:29 Active Nothing per Oral Now Diet [DIET] Diet 11/01/17 Dinner Active Abdomen Pelvis w Cont [CT] Stat Exams 11/01/17 22:36 Ordered BASIC METABOLIC PANEL,BMP [CHEM] AM Lab 11/02/17 05:11 Ordered BASIC METABOLIC PANEL,BMP [CHEM] AM Lab 11/03/17 05:11 Ordered BASIC METABOLIC PANEL,BMP [CHEM] AM Lab 11/04/17 05:11 Ordered CBC WITH AUTO DIFF [HEME] AM Lab 11/02/17 05:11 Ordered CBC WITH AUTO DIFF [HEME] AM Lab 11/03/17 05:11 Ordered CBC WITH AUTO DIFF [HEME] AM Lab 11/04/17 05:11 Ordered CULTURE STOOL + CAMPY+SHIGATOX [RM] Routine Lab 11/01/17 22:29 Ordered HELICOBACTER PYLORI AB IGG [CHEM] Routine Lab 11/01/17 22:29 Ordered MAGNESIUM [CHEM] AM Lab 11/02/17 05:11 Ordered OCCULT BLOOD DIAGNOSTIC [OP] Routine Lab 11/01/17 22:29 Ordered PHOSPHORUS [CHEM] AM Lab 11/02/17 05:11 Ordered Lactated Ringers [Ringers, Lactated] 1,000 ml Med 11/01/17 22:30 Active IV ASDIRECTED Morphine Med 11/01/17 22:29 Active 2 mg IVPUSH Q2H PRN Ondansetron [Zofran] Med 11/01/17 22:29 Active 4 mg IVPUSH Q4H PRN Pantoprazole [ProTONIX IV] Med 11/02/17 09:00 Active 80 mg IVPUSH Q12HR Promethazine [Phenergan] Med 11/01/17 22:29 Active 25 mg IM Q6H PRN Sequential Compression Device [OM.PC] Per Unit Routine Oth 11/01/17 22:31 Ordered Resuscitation Status Routine Resus Stat 11/01/17 22:29 Ordered Medication Orders Lactated Ringer's (Ringers, Lactated) 1,000 mls @ 125 mls/hr IV ASDIRECTED [place] Morphine Sulfate (Morphine) 2 mg IVPUSH Q2H PRN PRN Reason: Pain (severe 7-10) Stop: 11/02/17 22:32 Ondansetron HCl (Zofran) 4 mg IVPUSH Q4H PRN PRN Reason: Nausea Pantoprazole Sodium (Protonix Iv) 80 mg IVPUSH Q12HR [place] Promethazine HCl (Phenergan) 25 mg IM Q6H PRN PRN Reason: Nausea Assessment/Plan Comment:: 37-year-old male admitted 11/01/17 for suspected GI bleed and intractable nausea and vomiting with no significant past medical history. Acute GI bleed: Patient placed nothing by mouth, IV Protonix 80 mg twice a day. IV fluid resuscitate. Helical factor pylori ordered CT abdomen and pelvis ordered. Hemoccult. Will need surgery consult in a.m. Nausea/vomiting/diarrhea: Stool cultures ordered as well as CT abdomen and pelvis, urinalysis and urine culture, Zofran and Phenergan for symptomatic relief. VTE: SCD, no pharm secondary to acute GI Bleed. Dispo: 1-2 days pending.
[2017-11-01] MEDS ORDERED: diphenhydrAMINE 50 MG/ML SDV IVPUSH ONE (23:21)
[2017-11-01] MEDS ORDERED: Prochlorperazine 10 MG/2 ML SDV IVPUSH ONE (23:23)
[2017-11-01] MEDS: Lactated Ringers 1,000 ML IV SCH (23:39)
[2017-11-02 06:08] LABS: CHLORIDE,CL 106 mmol/L (98-107); SODIUM,NA 140 mmol/L (136-148)
[2017-11-02] MEDS: Lactated Ringers 1,000 ML IV SCH (07:47)
[2017-11-02] MEDS ORDERED: Magnesium Sulfate/Water 4 GM in Premix Bag 1 BAG IV ONE (08:33)
[2017-11-02] MEDS ORDERED: Pantoprazole 40 MG Vial IVPUSH SCH (09:00)
--- NOTE | 2017-11-02 10:48 | CT ---
EXAM DATE: 11/01/17 PATIENT'S AGE: 37 Patient: JOAQUIN ANDRES Facility: [place], [place] Site . Site : [id number] Study: CT Abdomen/Pelvis [id number] 11:19:25 PM Ordering Physician: Sid Roberson Final Report: HISTORY: Abdomen pain, bloody stools. TECHNIQUE: The abdomen and pelvis were scanned using helical technique at 3 mm intervals after 100 cc of Isovue-370. Sagittal and reconstructions were performed. FINDINGS: Lung bases: No infiltrate. Liver and gallbladder: A small hypodensity of the liver parenchyma consistent with fatty infiltration. The right lobe liver measures 22.3 cm in length. No calcified gallstones. Spleen, pancreas and adrenal glands: The spleen measures 17.4 cm in AP diameter. Pancreas is homogeneous. Adrenal glands are normal. Kidneys and bladder: Symmetric nephrograms. No hydronephrosis. The bladder is incompletely distended and unremarkable in appearance. Retroperitoneum and lymph nodes: The aorta is normal caliber. There are a few small portacaval and periaortic lymph nodes. No pathologic adenopathy. GI tract: Stomach is decompressed. There is some air and fluid seen in nondilated small bowel loops. No transition point. The appendix is normal. The colon is decompressed with minimal stool and gas. No pericolonic inflammatory change is seen. There is no free air in the abdomen. There is no free fluid the pelvis. Pelvic organs: The prostate is normal. Abdominal wall: Small fat containing umbilical hernia without inflammatory change. Osseous structures: No suspicious lytic or blastic bone lesions are seen. IMPRESSION: 1. Mild fatty infiltration of the liver with mild hepatomegaly. 2. Splenomegaly. 3. No bowel obstruction, free air or free fluid. 4. The colon is decompressed. There is no pericolonic inflammatory change to suggest colitis or diverticulitis. 5. Normal appendix. Dictated by Agata Braswell MD @ 11/01/2017 11:36:34 PM Dictated by: Agata Braswell MD @ 11/01/2017 23:37:02 (Electronic Signature) Report Signed by Proxy. [facility]
--- NOTE | 2017-11-02 11:16 | PCM.DCSUM1 ---
Discharge Summary - Hospital Course Brief History: 37-year-old male presenting to emergency department with chief complaint of nausea, vomiting, diarrhea 2 days with no significant past medical history. Patient states that for the last couple of days he has had nausea, vomiting, and diarrhea. He is not able to keep anything down. He's had associated abdominal cramping and does mention dark tarry odorus stools. He does report a similar episode that happened approximately 1 month ago. He is also complaining of some fever, chills, and diaphoresis. He denies any history of GERD, bloody stools, or GI bleeds. Patient has no significant past medical history but does take phentermine occasionally for weight loss. He has not taken the medication for some time. Patient states that he does not see a regular primary care physician here and has no allergies. Currently denies any chest pain, palpitations, shortness breath, syncopal episodes, or focal neurologic deficits. Emergency department: CBC shows normal hemoglobin level and is unremarkable, CMP unremarkable, vital signs tachycardia of 114 with hypertension of 142/76. He was given Protonix 80 mg IV as well as 1 L normal saline. Patient admitted for acute GI bleed/intractable nausea and vomiting/ dehydration. - Discharge Data Discharge Date: 11/02/17 Discharge Disposition: Home, Self-Care 01 Condition: Good - Discharge Diagnosis/Problem(s) (1) Black tarry stools SNOMED Code(s): 866596102 ICD Code: K92.1 - MELENA Status: Acute Current Visit: Yes (2) Dehydration SNOMED Code(s): 24703964 ICD Code: E86.0 - DEHYDRATION Status: Acute Current Visit: Yes (3) Diarrhea SNOMED Code(s): 63597432 ICD Code: R19.7 - DIARRHEA, UNSPECIFIED Status: Acute Priority: High Current Visit: Yes Qualifiers: Diarrhea type: unspecified type Qualified Code(s): R19.7 - Diarrhea, unspecified (4) Gastrointestinal bleeding SNOMED Code(s): 80694604 ICD Code: K92.2 - GASTROINTESTINAL HEMORRHAGE, UNSPECIFIED Status: Acute Current Visit: Yes Qualifiers: Gastritis type: acute gastritis (5) Nausea & vomiting SNOMED Code(s): 58051949 ICD Code: R11.2 - NAUSEA WITH VOMITING, UNSPECIFIED Status: Acute Priority: High Current Visit: Yes Qualifiers: Vomiting type: unspecified - Patient Instructions Diet: Full Liquid Diet, GI Soft/Low Residue/Low Fiber (slowly advance to regular over next day or two. ) Activity: As Tolerated, No Strenuous Activities Showering/Bathing: May Shower Notify Provider of: Fever, Increased Pain, Swelling and Redness, Drainage, Nausea and/or Vomiting Other/Special Instructions: Do not take NSAIDs, this includes, Ibuprofen, Aleve , Motrin, Advil or Aspirin. May use Tylenol. - Discharge Plan Prescriptions/Med Rec: Pantoprazole Sodium [Protonix] 40 mg PO DAILY #30 tablet. Home Medications: Home Meds Pantoprazole Sodium [Protonix] 40 mg PO DAILY #30 tablet. 11/02/17 [Rx] Referrals: Benita Morris MD [Physician] - - Discharge Summary/Plan Comment DC Time >30 min.: No Discharge Summary/Plan Comment: Discharge Diagnoses: Suspected gastritis N/V- resolved Zeke was admitted with intractable nausea and vomiting which have resolved with bowel rest and IVFs overnight. Stool studies negative for campylobacter, some still pending. Hemoccult positive. No further diarrhea or black stools since admission. Hgb stable, slight decrease overnight, but likely related to dilution effect from IVFs. He is feeling better today and asking for discharge. Advanced diet to CL which he tolerated well. He is to continue [place] to soft diet and then slowly advance to regular. He was encouraged to STOP NSAID use and use Tylenol PRN for pain/headache. He denies alcohol use. He will be continued on Protonix 40 mg daily x 1 month. He will have follow up with PCP and Dr Morris for possible endoscopy. He is to return to ED ot clinic if concerns should arise. - General Info Date of Service: 11/02/17 Admission Dx/Problem (Free Text: Admission Diagnosis/Problem Admission Diagnosis/Problem Acute gastrointestinal hemorrhage Subjective Update: Feeling better this morning, no further stools or N/V. Asking to go home. Abdomen is no longer tender or cramping. feeling better. WIll advance diet. Functional Status: Reports: Pain Controlled, Tolerating Diet, Ambulating, Urinating - Review of Systems General: Reports: No Symptoms. Denies: Fever Pulmonary: Reports: No Symptoms. Denies: Shortness of Breath Cardiovascular: Reports: No Symptoms. Denies: Chest Pain, Palpitations Gastrointestinal: Reports: No Symptoms. Denies: Diarrhea, Nausea, Vomiting Genitourinary: Reports: No Symptoms. Denies: Dysuria, Frequency, Burning, Pain Neurological: Reports: No Symptoms. Denies: Confusion Psychiatric: Reports: No Symptoms. Denies: Confusion - Patient Data Vitals - Most Recent: Last Vital Signs Temp 97.9 F 11/02/17 07:45 Pulse 89 11/02/17 07:45 Resp 18 11/02/17 07:45 BP 124/68 11/02/17 07:45 Pulse Ox 93 L 11/02/17 07:45 Weight - Most Recent: 148 kg I&O - Last 24 hours: Intake & Output 11/01/17 11/02/17 11/02/17 22:59 06:59 14:59 Intake Total 500 Output Total 0 Balance 500 Lab Results - Last 24 hrs: Laboratory Results - last 24 hr 11/02/17 11/02/17 11/02/17 Range/Units 04:54 04:54 09:10 WBC 7.15 (4.0-11.0) K/uL RBC 4.82 (4.50-5.90) M/uL Hgb 12.9 L (13.0-17.0) g/dL Hct 39.2 (38.0-50.0) % MCV 81.3 (80.0-98.0) fL MCH 26.8 L (27.0-32.0) pg MCHC 32.9 (31.0-37.0) g/dL RDW Std Deviation 41.0 (28.0-62.0) fl RDW Coeff of Ruben 14 (11.0-15.0) % Plt Count 202 (150-400) K/uL MPV 10.90 (7.40-12.00) fL Neut % (Auto) 70.5 (48.0-80.0) % Lymph % (Auto) 21.1 (16.0-40.0) % [place] % (Auto) 8.0 (0.0-15.0) % Eos % (Auto) 0.3 (0.0-7.0) % Baso % (Auto) 0.1 (0.0-1.5) % Neut # (Auto) 5.0 (1.4-5.7) K/uL Lymph # (Auto) 1.5 (0.6-2.4) K/uL [place] # (Auto) 0.6 (0.0-0.8) K/uL Eos # (Auto) 0.0 (0.0-0.7) K/uL Baso # (Auto) 0.0 (0.0-0.1) K/uL Nucleated RBC % 0.0 /100WBC Nucleated RBCs # 0 K/uL Sodium 140 (136-148) mmol/L Potassium 3.4 L (3.5-5.1) mmol/L Chloride 106 (98-107) mmol/L Carbon Dioxide 25.1 (21.0-32.0) mmol/L BUN 14 (7.0-18.0) mg/dL Creatinine 0.9 (0.8-1.3) mg/dL Est Cr Clr Drug Dosing 109.78 mL/min Estimated GFR (MDRD) > 60.0 ml/min Glucose 81 (74-106) mg/dL Calcium 8.0 L (8.5-10.1) mg/dL Phosphorus 3.2 (2.6-4.7) mg/dL Magnesium 1.4 L (1.5-2.0) mg/dL Urine Color YELLOW Urine Appearance CLEAR Urine pH 5.5 (5.0-8.0) Ur Specific [place] 1.025 (1.001-1.035) Urine Protein NEGATIVE (NEGATIVE) mg/dL Urine Glucose (UA) NEGATIVE (NEGATIVE) mg/dL Urine Ketones NEGATIVE (NEGATIVE) mg/dL Urine Occult Blood NEGATIVE (NEGATIVE) Urine Nitrite NEGATIVE (NEGATIVE) Urine Bilirubin NEGATIVE (NEGATIVE) Urine Urobilinogen 0.2 (<2.0) EU/dL Ur Leukocyte Esterase NEGATIVE (NEGATIVE) Urine RBC 0-1 (0-2/HPF) Urine WBC 0-1 (0-5/HPF) Ur Epithelial Cells RARE (NONE-FEW) Urine Bacteria RARE (NEGATIVE) CARISSA Results - Last 24 hrs: Microbiology 11/01/17 23:55 Stool Occult Blood (CARISSA) - Final Stool / Feces POSITIVE OCCULT BLOOD 11/01/17 23:55 Campylobacter Antigen Assay - Final Stool / Feces NEGATIVE CAMPYLOBACTER AG Med Orders - Current: Current Medications Morphine Sulfate (Morphine) 2 mg IVPUSH Q2H PRN PRN Reason: Pain (severe 7-10) Stop: 11/02/17 22:32 Ondansetron HCl (Zofran) 4 mg IVPUSH Q4H PRN PRN Reason: Nausea Pantoprazole Sodium (Protonix Iv) 80 mg IVPUSH Q12HR [facility] Last Admin: 11/02/17 08:52 Dose: 80 mg Promethazine HCl (Phenergan) 25 mg IM Q6H PRN PRN Reason: Nausea Discontinued Medications Diphenhydramine HCl (Benadryl) 25 mg IVPUSH ONETIME ONE Stop: 11/01/17 23:22 Last Admin: 11/01/17 23:45 Dose: 25 mg Sodium Chloride (Normal Saline) 1,000 mls @ 999 mls/hr IV STAT ONE Stop: 11/01/17 21:24 Last Admin: 11/01/17 20:54 Dose: 999 mls/hr Lactated Ringer's (Ringers, Lactated) 1,000 mls @ 125 mls/hr IV ASDIRECTED [facility] Last Admin: 11/02/17 07:47 Dose: 125 mls/hr Magnesium Sulfate 4 gm/ Premix 100 mls @ 50 mls/hr IV ONETIME ONE Stop: 11/02/17 10:32 Last Admin: 11/02/17 09:02 Dose: 50 mls/hr Iopamidol (Isovue-370 (76%)) 100 ml IVPUSH ONETIME STA Stop: 11/01/17 22:45 Last Admin: 11/01/17 22:48 Dose: 100 ml Ondansetron HCl (Zofran) 4 mg IVPUSH ONETIME ONE Stop: 11/01/17 20:25 Last Admin: 11/01/17 20:54 Dose: 4 mg Pantoprazole Sodium (Protonix Iv) 80 mg IVPUSH .BOLUS ONE Stop: 11/01/17 20:25 Last Admin: 11/01/17 20:54 Dose: 80 mg Prochlorperazine Edisylate (Compazine) 10 mg IVPUSH ONETIME ONE Stop: 11/01/17 23:24 Last Admin: 11/01/17 23:45 Dose: 10 mg - Exam General: Reports: Alert, Oriented, Cooperative, No Acute Distress Neck: Reports: Supple Lungs: Reports: Clear to Auscultation, Normal Respiratory Effort Cardiovascular: Reports: Regular Rate, Regular Rhythm GI/Abdominal Exam: Normal Bowel Sounds, Soft, Non-Tender, No Organomegaly, No Distention, No Abnormal Bruit, No Mass, Pelvis Stable Extremities: Normal Inspection, Normal Range of Motion, Non-Tender, No Pedal Edema, Normal Capillary Refill Neurological: Reports: No New Focal Deficit Psy/Mental Status: Reports: Alert, Normal Affect, Normal Mood *Q Meaningful Use (DIS) - VTE *Q VTE Criteria *Q: - Stroke *Q Stroke Criteria *Q: - AMI *Q AMI Criteria *Q:
[2017-11-02 11:20] VITALS: BP 143/80
== END 2017-11-02 12:50 | disposition home or self-care (01) ==
LOC: MW.ED 19:49 → MW.MS 22:15
PROVIDERS: ADMIT Family Medicine; ATTEND Family Medicine
DX: K92.1 Melena (principal); K92.2 Gastrointestinal hemorrhage, unspecified; E86.0 Dehydration; I10 Essential (primary) hypertension; G47.30 Sleep apnea, unspecified; F41.9 Anxiety disorder, unspecified; F31.9 Bipolar disorder, unspecified; Z79.899 Other long term (current) drug therapy; Z99.89 Dependence on other enabling machines and devices
CPT/HCPCS: 36415; 74177; 80048; 80053; 81001; 82272; 83690; 83735; 84100; 85025; 86677; 87046; 87086; 87324; 87899; 96361; 96365; 96366; 96375; 96376; 99285; C9113; G0378; J0780; J1200; J2405; J3475; J7040; J7120; Q9967; 96374; 99283

== ENCOUNTER 2017-12-12 09:55 | Emergency (ER) | payer OTHER ==
[2017-12-12] MEDS ORDERED: Sodium Chloride 0.9% 2.5 ML Syringe FLUSH PRN (10:18)
[2017-12-12] MEDS ORDERED: Sodium Chloride 0.9% 10 ML Syringe FLUSH PRN (10:18)
--- NOTE | 2017-12-12 10:25 | EDM.PDOC ---
ED HPI GENERAL MEDICAL PROBLEM - General Chief Complaint: Gastrointestinal Problem Stated Complaint: VOMITTING Time Seen by Provider: 12/12/17 10:23 Source of Information: Reports: Patient History Limitations: Reports: No Limitations - History of Present Illness INITIAL COMMENTS - FREE TEXT/NARRATIVE: HISTORY AND PHYSICAL: []37-year-old male presenting with abdominal pain diarrhea and vomiting 24 hours History of Present Illness: []Patient was admitted in October with abdominal pain nausea vomiting he had tarry stools Patient is known to the ER staff has been noncompliant in follow-up recommendations Patient did not follow-up with recommendation for colonoscopy Review of Systems: As per history of present illness and below otherwise all systems reviewed and negative. Past medical history: As per history of present illness and as reviewed below otherwise noncontributory. Surgical history: As per history of present illness and as reviewed below otherwise noncontributory. Social history: No reported history of drug or alcohol abuse. Family history: As per history of present illness and as reviewed below otherwise noncontributory. Physical exam: Alert and oriented male answering questions appropriately in full sentences without any shortness of breath HEENT: Atraumatic, normocehpalic, pupils reactive, negative for conjunctival pallor or scleral icterus, mucous membranes moist, throat clear, neck supple, nontender, trachea midline. Lungs: Clear to auscultation, breath sounds equal bilaterally, chest non tender. Heart: S1S2, regular, negative for clicks, rubs, or JVD. Abdomen: Soft, nondistended, tender to lower rebound and no guarding. Negative for masses or hepatossplenmegaly. Negative for costovertebral tenderness. Pelvis: Stable nontender. Genitourinary: Deferred. Rectal: Deferred Extremities: Atraumatic, negative for cords or calf pain. Neurovascular unremarkable. Neuro: Awake, alert, oriented. Cranial nerves II through XII unremarkable. Cerebellum unremarkable. Motor and sensory unremarkable throughout. Exam nonfocal. Discussed with this patient the negative testing was completed. Noted improvement after the Zofran was given Diagnostics: []CBC CMP amylase lipase Therapeutics: []IV therapy Zofran Impression: []Nausea vomiting diarrhea Plan: []Discharged home Follow-up with your primary care provider as you were in the emergency room and needed follow-up care [facility] [address] [place] [id number] [place] [address] Prescription for Zofran has been issued For you diarrhea take Imodium right ear available [id number] Definitive disposition and diagnosis as appropriate pending reevaluation and review of above. Onset: Sudden Duration: Day(s): (1) Location: Reports: Abdomen Quality: Reports: Same as Previous Episode Severity: Mild Improves with: Reports: None Worsens with: Reports: None Associated Symptoms: Reports: Nausea/Vomiting Headache Pain Score (Numeric/FACES): 3 - Related Data Allergies Allergy/AdvReac Type Severity Reaction Status Date / Time No Known Allergies Allergy Verified 11/01/17 20:29 Home Meds: Home Meds Pantoprazole Sodium [Protonix] 40 mg PO DAILY #30 tablet.dr 11/02/17 [Rx] Ondansetron [Zofran ODT] 4 mg PO Q6H PRN #12 tab.dis 12/12/17 [Rx] Past Medical History - Past Health History Medical/Surgical History: Denies Medical/Surgical History HEENT History: Reports: None, Other (See Below) Other HEENT History: Astigmatism L eye Cardiovascular History: Reports: None Respiratory History: Reports: Sleep Apnea Other Respiratory History: on CPAP Gastrointestinal History: Reports: None Genitourinary History: Reports: None Musculoskeletal History: Reports: None Other Musculoskeletal History: Back pain, right knee has a torn lateral miniscus -suppose to have surgery, right ankle pain with walking Neurological History: Reports: Migraines Psychiatric History: Reports: Anxiety, Bipolar, Depression, Panic Attack Endocrine/Metabolic History: Reports: None Hematologic History: Reports: None Immunologic History: Reports: None Oncologic (Cancer) History: Reports: None Dermatologic History: Reports: Eczema, Other (See Below) Other Dermatologic History: dry skin especially around the eyes - Infectious Disease History Infectious Disease History: Reports: Chicken Pox Other Infectious Disease History: childhood - Past Surgical History HEENT Surgical History: Reports: None Respiratory Surgical History: Reports: None Musculoskeletal Surgical History: Reports: None Dermatological Surgical History: Reports: None Social & Family History - Family History Family Medical History: Noncontributory Cardiac: Reports: Heart Failure, Hypertension Respiratory: Reports: Asthma, COPD, Other (See Below) Other Respiratory Family Hisory: Emphysema Psychiatric: Reports: Anxiety, Depression Endocrine/Metabolic: Reports: Diabetes, type II Oncologic: Reports: Cervix, Thyroid - Tobacco Use Smoking Status *Q: Never Smoker Second Hand Smoke Exposure: Yes - Caffeine Use Caffeine Use: Reports: Soda - Alcohol Use Days Per Week of Alcohol Use: 7 Number of Drinks Per Day: 1 Total Drinks Per Week: 7 - Recreational Drug Use Recreational Drug Use: No ED ROS GENERAL - Review of Systems Review Of Systems: ROS reveals no pertinent complaints other than HPI. ED EXAM, GI/ABD - Physical Exam Exam: See Below Course - Vital Signs Last Recorded V/S: Last Vital Signs Temp 37.0 C 12/12/17 12:00 Pulse 89 12/12/17 12:00 Resp 16 12/12/17 12:00 BP 129/85 12/12/17 12:00 Pulse Ox 94 L 12/12/17 12:00 - Orders/Labs/Meds Labs: Laboratory Tests 12/12/17 12/12/17 12/12/17 Range/Units 10:35 10:35 10:35 WBC 8.08 (4.0-11.0) K/uL RBC 5.22 (4.50-5.90) M/uL Hgb 14.2 (13.0-17.0) g/dL Hct 42.4 (38.0-50.0) % MCV 81.2 (80.0-98.0) fL MCH 27.2 (27.0-32.0) pg MCHC 33.5 (31.0-37.0) g/dL RDW Std Deviation 39.9 (28.0-62.0) fl RDW Coeff of Ruben 14 (11.0-15.0) % Plt Count 259 (150-400) K/uL MPV 10.50 (7.40-12.00) fL Neut % (Auto) 74.0 (48.0-80.0) % Lymph % (Auto) 18.6 (16.0-40.0) % Dane % (Auto) 5.7 (0.0-15.0) % Eos % (Auto) 1.5 (0.0-7.0) % Baso % (Auto) 0.2 (0.0-1.5) % Neut # (Auto) 6.0 H (1.4-5.7) K/uL Lymph # (Auto) 1.5 (0.6-2.4) K/uL Dane # (Auto) 0.5 (0.0-0.8) K/uL Eos # (Auto) 0.1 (0.0-0.7) K/uL Baso # (Auto) 0.0 (0.0-0.1) K/uL Nucleated RBC % 0.0 /100WBC Nucleated RBCs # 0 K/uL Sodium 140 (136-148) mmol/L Potassium 3.8 (3.5-5.1) mmol/L Chloride 105 (98-107) mmol/L Carbon Dioxide 23.7 (21.0-32.0) mmol/L BUN 16 (7.0-18.0) mg/dL Creatinine 0.8 (0.8-1.3) mg/dL Est Cr Clr Drug Dosing 123.50 mL/min Estimated GFR (MDRD) > 60.0 ml/min Glucose 106 (74-106) mg/dL Calcium 8.9 (8.5-10.1) mg/dL Total Bilirubin 0.3 (0.2-1.0) mg/dL AST 20 (15-37) IU/L ALT 39 (14-63) IU/L Alkaline Phosphatase 71 (46-116) U/L Total Protein 7.8 (6.4-8.2) g/dL Albumin 3.4 (3.4-5.0) g/dL Globulin 4.4 H (2.0-3.5) g/dL Albumin/Globulin Ratio 0.8 L (1.3-2.8) Amylase 67 (25-115) U/L Lipase 145 (73-393) U/L H. pylori IgG Antibody NEGATIVE (NEG) Meds: Medications Discontinued Medications Generic Name Dose Route Start Last Admin Trade Name Freq PRN Reason Stop Dose Admin Sodium Chloride 1,000 mls @ 999 mls/hr 12/12/17 10:18 12/12/17 11:02 Normal Saline IV 12/12/17 11:18 Not Given STAT ONE Ondansetron HCl 4 mg 12/12/17 10:18 12/12/17 11:01 Zofran IVPUSH 12/12/17 10:19 Not Given ONETIME ONE Ondansetron HCl 4 mg 12/12/17 11:04 12/12/17 11:24 Zofran Odt PO 12/12/17 11:05 4 mg ONETIME ONE Administration Sodium Chloride 10 ml 12/12/17 10:18 Saline Flush FLUSH ASDIRECTED PRN Keep Vein Open Sodium Chloride 2.5 ml 12/12/17 10:18 Saline Flush FLUSH ASDIRECTED PRN Keep Vein Open Departure - Departure Time of Disposition: 12:46 Disposition: Home, Self-Care 01 Condition: Good Clinical Impression: Diarrhea Nausea & vomiting Qualifiers: Vomiting type: unspecified Vomiting Intractability: non-intractable Qualified Code(s): R11.2 - Nausea with vomiting, unspecified - Discharge Information Prescriptions: Ondansetron [Zofran ODT] 4 mg PO Q6H PRN #12 tab.dis PRN Reason: Nausea/Vomiting Referrals: PCP,None [Primary Care Provider] - Forms: ED Department Discharge Additional Instructions: The following information is given to patients seen in the emergency department who are being discharged to home. This information is to outline your options for follow-up care. We provide all patients seen in our emergency department with a follow-up referral. The need for follow-up, as well as the timing and circumstances, are variable depending upon the specifics of your emergency department visit. If you don't have a primary care physician on staff, we will provide you with a referral. We always advise you to contact your personal physician following an emergency department visit to inform them of the circumstance of the visit and for follow-up with them and/or the need for any referrals to a consulting specialist. The emergency department will also refer you to a specialist when appropriate. This referral assures that you have the opportunity for followup care with a specialist. All of these measure are taken in an effort to provide you with optimal care, which includes your followup. Under all circumstances we always encourage you to contact your private physician who remains a resource for coordinating your care. When calling for followup care, please make the office aware that this follow-up is from your recent emergency room visit. If for any reason you are refused follow-up, please contact the [facility] emergency department at and asked to speak to the emergency department charge nurse. Your nausea improved after being given Zofran Prescription has been sent to [facility] The need to establish care with primary care [facility] [address] [place] [id number] [place] [address] Recommend if you have diarrhea continuing obtain Imodium [id number] and take as directed
[2017-12-12] MEDS: Sodium Chloride 0.9% 1,000 ML IV ONE ×2 (10:50→11:02)
[2017-12-12] MEDS: Ondansetron 4 MG/2 ML SDV IVPUSH ONE ×2 (10:51→11:01)
[2017-12-12] MEDS ORDERED: Ondansetron 4 MG Tab.DIS PO ONE (11:04)
[2017-12-12 11:30] LABS: CHLORIDE,CL 105 mmol/L (98-107); SODIUM,NA 140 mmol/L (136-148)
[2017-12-12 12:01] VITALS: BP 129/85
--- NOTE | 2017-12-12 12:55 | CR ---
EXAMINATION: Abdomen HISTORY: Pain COMPARISON: CT dated 11/01/2017 TECHNIQUE: AP and upright views of the abdomen FINDINGS: There is no free air under the diaphragm. There is a nonobstructive bowel gas pattern demon strated. No abnormal calcifications project over the kidneys. No organomegaly. Visualized osseous str uctures appear normal. Mild subchondral cystic change noted within the right hip. IMPRESSION: No acute abdominal findings.
== END 2017-12-12 13:12 | disposition home or self-care (01) ==
LOC: MW.ED 09:55
DX: R11.2 Nausea with vomiting, unspecified (principal); R19.7 Diarrhea, unspecified; Z79.899 Other long term (current) drug therapy
CPT/HCPCS: 36415; 74019; 80053; 82150; 83690; 85025; 86677; 99283; A9270; J2405; J7040

== ENCOUNTER 2018-05-03 15:53 | Emergency (ER) | payer OTHER ==
--- NOTE | 2018-05-03 17:11 | EDM.PDOC ---
ED HPI GENERAL MEDICAL PROBLEM - General Chief Complaint: General Stated Complaint: SINUS INFECTION Time Seen by Provider: 05/03/18 17:09 Source of Information: Reports: Patient History Limitations: Reports: No Limitations - History of Present Illness INITIAL COMMENTS - FREE TEXT/NARRATIVE: HISTORY AND PHYSICAL: History of present illness: Patient is a 38-year-old male here with complaint of acute sinus infection. Patient states that he's had a sinus infection for about 3 weeks and he has been on Augmentin for the past week. He reports he has not gotten any better in fact has been getting worse. He states he fell out of nasal congestion and can' t breath out of his nose which makes it hard for him to eat. He reports having a cough without productive sputum. He states his chest feels tight. Review of systems: As per history of present illness and below otherwise all systems reviewed and negative. Past medical history: As per history of present illness and as reviewed below otherwise noncontributory. Surgical history: As per history of present illness and as reviewed below otherwise noncontributory. Social history: No reported history of drug or alcohol abuse. Family history: As per history of present illness and as reviewed below otherwise noncontributory. Physical exam: General: Patient sitting comfortably in no acute distress and nontoxic appearing HEENT: Maxilliary and frontal sinus tenderness to palpation. Atraumatic, normocephalic, pupils reactive, negative for conjunctival pallor or scleral icterus, mucous membranes moist, throat clear, neck supple, nontender, trachea midline. No meningeal signs. Lungs: Clear to auscultation, breath sounds equal bilaterally, chest nontender. Heart: S1S2, regular, negative for clicks, rubs, or overt murmur. Abdomen: Soft, nondistended, nontender. Negative for masses or hepatosplenomegaly. Negative for costovertebral tenderness. Pelvis: Stable nontender. Genitourinary: Deferred. Rectal: Deferred. Extremities: Atraumatic, negative for cords or calf pain. Neurovascular unremarkable. Neuro: Awake, alert, oriented. Cranial nerves II through XII unremarkable. Cerebellum unremarkable. Motor and sensory unremarkable throughout. Exam nonfocal. Notes: Diagnostics: Chest x-ray Therapeutics: None Prescriptions: Levaquin Ventolin Medrol dosepak Impression: Acute sinusitis Acute bronchitis Plan: 1. Take medications as prescribed 2. Follow up with primary care provider 3. Return to ED as needed as discussed Definitive disposition and diagnosis as appropriate pending reevaluation and review of above. head Pain Score (Numeric/FACES): 7 - Related Data Allergies Allergy/AdvReac Type Severity Reaction Status Date / Time No Known Allergies Allergy Verified 05/03/18 16:29 Home Meds: Home Meds Pantoprazole Sodium [Protonix] 40 mg PO DAILY #30 tablet.dr 11/02/17 [Rx] Ondansetron [Zofran ODT] 4 mg PO Q6H PRN #12 tab.dis 12/12/17 [Rx] ALPRAZolam [Xanax] 1 mg PO DAILY PRN 05/03/18 [History] Albuterol [Ventolin HFA] 1 puff .XX Q4H #1 inhaler 05/03/18 [Rx] levoFLOXacin [Levaquin] 500 mg PO DAILY 14 Days #14 tab 05/03/18 [Rx] methylPREDNISolone [Medrol] 4 mg PO ASDIRECTED #1 tab.ds.pk 05/03/18 [Rx] Past Medical History - Past Health History Medical/Surgical History: Denies Medical/Surgical History HEENT History: Reports: None, Other (See Below) Other HEENT History: Astigmatism L eye Cardiovascular History: Reports: None Respiratory History: Reports: Sleep Apnea Other Respiratory History: on CPAP Gastrointestinal History: Reports: None Genitourinary History: Reports: None Musculoskeletal History: Reports: None Other Musculoskeletal History: Back pain, right knee has a torn lateral miniscus -suppose to have surgery, right ankle pain with walking Neurological History: Reports: Migraines Psychiatric History: Reports: Anxiety, Bipolar, Depression, Panic Attack, PTSD Endocrine/Metabolic History: Reports: None Hematologic History: Reports: None Immunologic History: Reports: None Oncologic (Cancer) History: Reports: None Dermatologic History: Reports: Eczema, Other (See Below) Other Dermatologic History: dry skin especially around the eyes - Infectious Disease History Infectious Disease History: Reports: Chicken Pox Other Infectious Disease History: childhood - Past Surgical History HEENT Surgical History: Reports: None Respiratory Surgical History: Reports: None Musculoskeletal Surgical History: Reports: None Dermatological Surgical History: Reports: None Social & Family History - Family History Family Medical History: Noncontributory Cardiac: Reports: Heart Failure, Hypertension Respiratory: Reports: Asthma, COPD, Other (See Below) Other Respiratory Family Hisory: Emphysema Psychiatric: Reports: Anxiety, Depression Endocrine/Metabolic: Reports: Diabetes, type II Oncologic: Reports: Cervix, Thyroid - Tobacco Use Smoking Status *Q: Never Smoker Second Hand Smoke Exposure: No - Caffeine Use Caffeine Use: Reports: Soda - Recreational Drug Use Recreational Drug Use: No ED ROS GENERAL - Review of Systems Review Of Systems: ROS reveals no pertinent complaints other than HPI. ED EXAM, GENERAL - Physical Exam Exam: See Below (see dictation) Course - Vital Signs Last Recorded V/S: Last Vital Signs Temp 36.6 C 05/03/18 16:31 Pulse 100 05/03/18 16:31 Resp 20 05/03/18 16:31 BP 145/84 H 05/03/18 16:31 Pulse Ox 95 05/03/18 16:31 - Orders/Labs/Meds Orders: Active Orders 24 hr Category Date Time Status Chest 1V Frontal [CR] Stat Exams 05/03/18 17:08 Ordered Departure - Departure Time of Disposition: 18:28 Disposition: Home, Self-Care 01 Condition: Good Clinical Impression: Sinusitis, Acute bronchitis - Discharge Information Prescriptions: Albuterol [Ventolin HFA] 1 puff .XX Q4H #1 inhaler levoFLOXacin [Levaquin] 500 mg PO DAILY 14 Days #14 tab methylPREDNISolone [Medrol] 4 mg PO ASDIRECTED #1 tab.ds.pk Referrals: Wily Sagastume MD [Primary Care Provider] - Forms: ED Department Discharge Additional Instructions: The following information is given to patients seen in the emergency department who are being discharged to home. This information is to outline your options for follow-up care. We provide all patients seen in our emergency department with a follow-up referral. The need for follow-up, as well as the timing and circumstances, are variable depending upon the specifics of your emergency department visit. If you don't have a primary care physician on staff, we will provide you with a referral. We always advise you to contact your personal physician following an emergency department visit to inform them of the circumstance of the visit and for follow-up with them and/or the need for any referrals to a consulting specialist. The emergency department will also refer you to a specialist when appropriate. This referral assures that you have the opportunity for follow-up care with a specialist. All of these measure are taken in an effort to provide you with optimal care, which includes your follow-up. Under all circumstances we always encourage you to contact your private physician who remains a resource for coordinating your care. When calling for follow-up care, please make the office aware that this follow-up is from your recent emergency room visit. If for any reason you are refused follow-up, please contact the [facility] Emergency Department at and asked to speak to the emergency department charge nurse. [facility] [address] [place] [phone] 1. Take medications as prescribed 2. Follow up with primary care provider 3. Return to ED as needed as discussed - My Orders Last 24 Hours: My Active Orders 05/03/18 17:08 Chest 1V Frontal [CR] Stat - Assessment/Plan Last 24 Hours: My Active Orders 05/03/18 17:08 Chest 1V Frontal [CR] Stat
[2018-05-03 23:17] VITALS: BP 140/80
--- NOTE | 2018-05-04 10:23 | CR ---
EXAM DATE: 05/03/18 PATIENT'S AGE: 38 Patient: JOAQUIN ANDRES Facility: [place], [place] Site . Site : [id number] Study: XRay Chest [id number] 5:30:45 PM Ordering Physician: Doctor Guzmán Final Report: INDICATION: Cough. COMPARISON: None. FINDINGS: The bony thorax and soft tissue structures are intact. Cardiac and mediastinal silhouettes are normal. The pulmonary vasculature is normal. The lungs are free of infiltrate. IMPRESSION: No active cardiopulmonary disease. Dictated by Amira Rodrigues MD @ May 03 2018 6:06PM (Electronic Signature) Report Signed by Proxy. [email or web address]
== END 2018-05-03 18:40 | disposition home or self-care (01) ==
LOC: MW.ED 15:53
DX: J01.90 Acute sinusitis, unspecified (principal); J20.9 Acute bronchitis, unspecified; Z79.899 Other long term (current) drug therapy
CPT/HCPCS: 71045; 71045-26; 99283